=== PATIENT | male | born 1955 ===

== ENCOUNTER 2022-01-04 13:09 | Outpatient (REF) | payer MEDICAID, SELFPAY ==
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
== END 2022-01-04 13:10 | disposition home or self-care (01) ==
LOC: HO.SH 13:09
PROVIDERS: Visit Provider Otolaryngology
DX: Z01.118 Encounter for examination of ears and hearing with other abnormal findings (principal); Z46.1 Encounter for fitting and adjustment of hearing aid; H90.3 Sensorineural hearing loss, bilateral
CPT/HCPCS: 92591; V5010

== ENCOUNTER 2022-02-27 08:08 | Outpatient (REF) | payer MEDICAID, SELFPAY ==
--- NOTE | 2022-02-27 09:06 | MHC.AU.HFA ---
Hearing Instrument Fitting- Adult- Binaural Date of Visit: 02/27/22 Hearing Instruments Dispensed: Right Ear: Phonak Audeo P70-R, #[id number], Sand Be[employer] Repair Warranty: 04/12/2025 Loss and Damage Warranty: 04/12/2025 Battery Size: Rechargeable Color: P1 Drafting Technician: 2M Type of Mold: cShell #[id number], Warranty 04/13/2022 Left Ear: Phonak Audeo P70-R, #[id number], Sand [employer] Rep[employer] Warranty: 04/12/2025 Loss and Damage Warranty: 04/12/2025 Battery Size: Rechargeable Color: P1 Drafting Technician: 2P Type of Mold: cShell #[id number], Warranty 04/13/2022 Summary of Fitting: Feedback manager er run. Verifit performed and levels adjusted to better reach targets. Patient felt 100% had an echo- lowered to 90%. Put occlusion compensation at medium. Patient was pleased with the sound of the instruments. Hearing aid care and use were discussed and practiced. Hearing aids were paired to the phone and to the conor. Recommendations: A hearing instrument follow-up was scheduled. Diagnosis Code(s): H90.3 Bilateral Sensorineural Hearing Loss Signature: Provider: Mani Figueroa, ANNELISEA
== END 2022-02-27 08:09 | disposition home or self-care (01) ==
LOC: HO.HAP 08:08
PROVIDERS: Visit Provider Internal Medicine
DX: Z46.1 Encounter for fitting and adjustment of hearing aid (principal); H90.3 Sensorineural hearing loss, bilateral
CPT/HCPCS: V5011; V5020; V5160; V5261; V5264

== ENCOUNTER 2022-03-20 09:12 | Outpatient (REF) | payer MEDICAID, SELFPAY | END 2022-03-20 09:13 | disposition home or self-care (01) | LOC: HO.HAP 09:12 | PROVIDERS: Visit Provider Internal Medicine | DX: Z13.89 Encounter for screening for other disorder (principal) ==

== ENCOUNTER 2023-10-22 12:47 | Outpatient (REF) | payer SELFPAY ==
--- NOTE | 2023-10-22 16:04 | MHC.AU.HA3 ---
Hearing Instrument Follow-Up- Binaural Date of Visit: 10/22/23 Right Ear: Carrillo, Model, Color, Serial Number: Alistair Paredeso P70-R, #[id number], Kerry Hernández Photo Checker Repair Warranty: 04/12/2025 Photo Checker Loss and Damage Warranty: 04/12/2025 Battery Size: Rechargeable Inspector Circuitry Negative/Slim Tube: 2M Earmold/Dome/CShell/SlimTip:cShell #[id number], Warranty 04/13/2022 Type of Wax Guard: none Dispensed By: [facility] Date of Fittin02/27/2022 Left Ear: Carrillo, Model, Color, Serial Number: Alistair Paredeso P70-R, #[id number], Kerry Hernández Photo Checker Repair Warranty: 04/12/2025 Photo Checker Loss and Damage Warranty: 04/12/2025 Battery Size: Rechargeable Inspector Circuitry Negative/Slim Tube: 2P Earmold/Dome/CShell/SlimTip: cShell #[id number], Warranty 04/13/2022 Type of Wax Guard: none Dispensed By: [facility] Date of Fittin02/27/2022 Follow-Up Summary: Both aids dropped off report right is intermittent, left . Cleaned both aids and c-shells. Ran through dehumidifier. Vacuumed out edi ports and six color press operator ports. Listening check positive right and left after cleaning. Recommendations: Recommendations: Patient will call if problems persist. Recommendations: Send aids and c shells to braiding machine tender if problems persist. Diagnosis Code(s): Primary Diagnosis: H90.3 Bilateral Sensorineural Hearing Loss Signature: Provider: Mani Palomino, [facility]
== END 2023-10-22 12:48 | disposition home or self-care (01) ==
LOC: HO.HAP 12:47
DX: Z13.89 Encounter for screening for other disorder (principal)

== ENCOUNTER 2023-10-23 09:58 | Outpatient (REF) | payer SELFPAY | END 2023-10-23 09:59 | disposition home or self-care (01) | LOC: HO.HAP 09:58 | PROVIDERS: Visit Provider Internal Medicine | DX: Z46.1 Encounter for fitting and adjustment of hearing aid (principal) | CPT/HCPCS: 92593 ==

== ENCOUNTER 2023-10-23 12:40 | Outpatient (REF) | payer SELFPAY | END 2023-10-23 12:41 | disposition home or self-care (01) | LOC: HO.HAP 12:40 | PROVIDERS: Visit Provider Otolaryngology | DX: Z13.89 Encounter for screening for other disorder (principal) ==

== ENCOUNTER 2023-11-06 10:53 | Outpatient (REF) | payer SELFPAY | END 2023-11-06 10:54 | disposition home or self-care (01) | LOC: HO.HAP 10:53 | DX: Z13.89 Encounter for screening for other disorder (principal) ==

== ENCOUNTER 2023-11-09 10:30 | Outpatient (REF) | payer SELFPAY ==
--- NOTE | 2023-11-09 14:44 | MHC.AU.HA3 ---
Hearing Instrument Follow-Up- Binaural Date of Visit: 11/09/23 Right Ear: Carrillo, Model, Color, Serial Number: Alistair Mccartney P70-R, #[id number], Kerry Hernández Instrument Lens Generator Repair Warranty: 04/12/2025 Instrument Lens Generator Loss and Damage Warranty: 04/12/2025 [facility] Service Plan: Battery Size: Rechargeable Stereo Operator/Slim Tube: 2M Earmold/Dome/CShell/SlimTip:cShell #[id number], Warranty 04/13/2022 Type of Wax Guard: Dispensed By: [facility] Date of Fittin02/27/2022 Left Ear: Carrillo, Model, Color, Serial Number: Alistair Paredeso P70-R, #[id number], Kerry Hernández Instrument Lens Generator Repair Warranty: 04/12/2025 Instrument Lens Generator Loss and Damage Warranty: 04/12/2025 [facility] Service Plan: Battery Size: Rechargeable Stereo Operator/Slim Tube: 2P Earmold/Dome/CShell/SlimTip: cShell #[id number], Warranty 04/13/2022 Type of Wax Guard: Dispensed By: [facility] Date of Fittin02/27/2022 Follow-Up Summary: Jeffery recently picked up hearing aids from repair, reports issue persists. Left aid does not feel loud enough in general and he doesn't hear anything from it when streaming music. Both aids sounds good and clear on listening check. Increased gain slightly left- improvement reported for hearing but not streaming. Tried Increasing MPO, deactivated frequency lowering, turned off whistleblock in streaming program. Tried fixed vs. adaptive connection. Forgot and repaired aids from phone. Deleted and reinstalled conor. None of the changes impacted quality of streamed music. Had Jeffery make a phone call- call streamed to both aids and sounded balanced. Connected Jeffery's hearing aids to my phone and played music- balanced sound streaming from both aids. This would suggest the problem is originating from Jeffery's phone. He is primarily streaming music from [employer], could not find a setting to adjust that might solve the problem. Appointment ran over about half an hour trying to solve this issue. Advised Jeffery to explore settings on his phone and see if he can find anything. - Later in the day I was able to research and found that Android phones should have a setting for sound balance in sound settings or accessibility settings. Called Jeffery and advised he look for those settings. He will give it a try. Asked him to call back and let me know what he finds. Recommendations: Recommendations: Patient will call if problems persist. Diagnosis Code(s): Primary Diagnosis: H90.3 Bilateral Sensorineural Hearing Loss Signature: Provider: Mani Palomino, [facility]
== END 2023-11-09 10:31 | disposition home or self-care (01) ==
LOC: HO.HAP 10:30
PROVIDERS: PCP Internal Medicine; Visit Provider Internal Medicine
DX: Z13.89 Encounter for screening for other disorder (principal)